=== PATIENT | male | born 1975 ===

== ENCOUNTER 2018-06-09 13:53 | Outpatient (CLI) | payer OTHER ==
[~2018-06-09] VITALS: Ht 177.8 cm; Wt 64.9 kg
== END 2018-06-09 14:15 | disposition home or self-care (01) ==
LOC: OFIC 805 13:53
DX: J04.0 Acute laryngitis (principal); K21.0 Gastro-esophageal reflux disease with esophagitis; H93.11 Tinnitus, right ear

== ENCOUNTER 2018-06-26 09:37 | Outpatient (CLI) | payer OTHER ==
[~2018-06-26] VITALS: Ht 152.4 cm; Wt 64.9 kg
== END 2018-06-26 10:00 | disposition home or self-care (01) ==
LOC: OFIC 805 09:37
DX: J04.0 Acute laryngitis (principal); K21.0 Gastro-esophageal reflux disease with esophagitis; H93.11 Tinnitus, right ear

== ENCOUNTER 2018-09-06 20:21 | Emergency (ER) | payer OTHER ==
[~2018-09-06] VITALS: Ht 177.8 cm; Wt 63.5 kg
== END 2018-09-06 21:35 | disposition home or self-care (01) ==
LOC: ER 20:21
DX: M54.2 Cervicalgia (principal); R07.0 Pain in throat